=== PATIENT | female | born 2005 | race Hispanic/Latino ===

== ENCOUNTER 2024-04-19 07:55 | Inpatient (IN) | payer OTHER, SELFPAY ==
[2024-04-16 18:23] VITALS: BP 130/88
--- NOTE | 2024-04-16 18:23 | ED.GENMED ---
History of Present Illness
General
Chief Complaint: Crisis Evaluation
Source: patient
Exam Limitations: none
Time Seen by Provider: 04/16/24 18:09
Nursing documentation reviewed up to this point in time: agreed with except (Denies neck pain)
History of Present Illness
History of Present Illness:
18-year-old female via EMS suicide attempt took some dxve-baz-pxkmrok Motrin a few hours ago which she was changed around her neck to try to hang herself, EMS was called denies any drugs or alcohol, has had brain surgery previously due to an ear
infection, currently unemployed, denies never been hospitalized before for mental illness denies any neck pain to me,
Update patient tells me she took Motrin also tells me she is not exactly sure what she took around 5:00 9 pills
Past History
Past History
ED Past Surgical History: Brain
Social History
Tobacco: Non-smoker
Alcohol: Occasional
Drug: None
Personal: Single
Living: with family
Employment: Not employed
Phy Exam
Physical Exam
Physical Exam:
Physical Exam
General: no apparent distress, not acutely ill
Neck: No stridor no trismus no crepitance no ligature
Heart: s1/s2 regular rate and rhythm, no murmur. equal radial pulses.
Lungs: no acute respiratory distress. clear bilaterally
Neuro: alert and oriented. no focal neurological deficits
Skin: no rash
Psychiatric: Cooperative not hallucinating
Extremities: no edema.
Course
Orders/Labs/Results
Orders:
Orders
04/16/24 18:14
Crisis Consult Urgent
Reason for Consult: SI
Test Result ONCE
04/16/24 18:32
1:1 Observation - Suicide/ Violent Behavior As Directed
Comment: SI
04/16/24 18:51
Acetaminophen Urgent
Alcohol Urgent
Complete Blood Count/With Diff Urgent
Comprehensive Metabolic Panel Urgent
HCG, Serum Qualitative Screen Urgent
Salicylate Urgent
04/16/24 18:52
Urine Drug Abuse Screen Urgent
Date Specimen was Collected: 04/16/24
Time Specimen was Collected: 18:51
04/16/24 19:33
Acetylcysteine [Acetadote] 6,100 mg 0.45% Sodium Chloride 1000 ml [0.45%NaCl] 1,000 ml IV ONCE
04/16/24 19:38
Electrocardiogram (*1) Urgent
Reason for Study: QTc Monitoring
EKG- Treatment ONCE
04/16/24 20:07
Acetylcysteine [Acetadote] 9,160 mg 0.45% Sodium Chloride 250 ml [0.45%NaCl] 200 ml IV NOW
04/16/24 20:09
Admit/Transfer Patient As Directed
Co-Sign Provider:
Level of Care: Observation services
Assign to:: Telemetry
Physician / Group: alonso
Diagnosis: tylenol overdose
Reason for Telemetry: Arrhythmia
Date to Stop Telemetry: 04/19/24
Time to Stop Telemetry: 11:00
PRN Pain Medication Management As Directed
May give lesser potent ordered pain med per pt: Yes
preference::
Protocol:: Medication orders for pain may be administered in a
manner that supports deferring to patient preference
when the pt is:
- Requesting an ordered lesser potent pain medication.
Least to most potent pain medications are defined
as: acetaminophen < NSAID < tramadol < opioids
(morphine, oxycodone, hydromorphone).
- Requesting a lesser dose of the same medication IF
ORDERED.
- Requesting a less intrusive route of administration
if both routes are prescribed by the provider (PO <
IV).
04/16/24 20:10
Code Status As Directed
Resuscitation Status: Full Code
04/16/24 20:21
Prothrombin Time Urgent
04/16/24 21:00
Acetylcysteine [Acetadote] 3,060 mg 0.45% Sodium Chloride 500 ml [0.45%NaCl] 500 ml IV ONCE
04/19/24 11:00
DC Protocol for Telemetry ONCE
Abnormal Lab Results
04/16/24 04/16/24
18:51 18:52
WBC 4.5 L 10^3/uL
(4.8-10.8)
MPV 11.0 H fL
(7.4-10.4)
Monocytes % 9.4 H %
(1.7-9.3)
Creatinine 0.5 L mg/dL
(0.6-1.0)
AST 43 H U/L
(14-36)
Salicylates < 1.0 L mg/dl
(2.0-20.0)
Acetaminophen 167 H* ug/ml
(10-30)
U Marijuana (THC) Screen Positive H
(Negative)
04/16/24 18:51
04/16/24 18:51
Vital Signs
Initial and Last Documented VS:
Initial Vital Signs
Pulse Resp BP Pulse Ox
90 18 130/88 98
04/16/24 18:23 04/16/24 18:23 04/16/24 18:23 04/16/24 18:23
Last Documented Vital Signs
Pulse Resp BP Pulse Ox
75 19 130/88 99
04/16/24 20:45 04/16/24 20:45 04/16/24 18:23 04/16/24 20:45
MDM/Problems Addressed
Differential Diagnosis Includes:
Suicide attempt suicidal gesture, attempted hanging
MDM/Problems Addressed:
Medicine overdose, attempted hanging appears to be low risk self strangulation with shoelaces, no ligature, no crepitance no pain no trismus
*Pulse Oximetry
Patient hypoxic: no
*Critical Care Note
Total Time (30-74mins, 75-104mins- exclusive of procedures): 30
Update Note
Update Note:
Update crisis think she is okay for outpatient follow-up I did get her Tylenol level, reviewed with patient around 5 or 530 if she took 9 Motrin she says although she is not sure she just did not even look at the pills, at this point I believe the
risk and benefits support starting N-acetylcysteine as patient is unreliable as an elevated level
ED Attending Note
-
Portions of this chart may have been created with voice recognition software.� Occasional wrong word or��sound alike� substitutions may have occurred due to the inherent limitations of voice recognition software.
Discharge Plan
Departure
Patient Disposition: Admit
Date of Disposition: 04/16/24
Time of Disposition: 19:50
Admit to: Telemetry
Presentation/result/management discussed w/ accepting MD/DO: Hospitalist
Patient with high blood pressure during this ER visit?: No
Condition: Fair
Covid-19: Not Applicable
Discharge Problem:
Acetaminophen overdose
Interventions
Interventions:
*Risk Screen - Suicide Last Done: 04/16/24 18:23
*General Assessment Last Done: 04/16/24 18:23
*Neglect/Abuse Screening Last Done: 04/16/24 18:23
*ED COVID-19 Vaccine History Last Done: 04/16/24 18:34
ED-Psychological Assessment Last Done: 04/16/24 18:37
Discharge Date and Time
Print Language: ZIMBABWEAN
[2024-04-16 18:34] VITALS: BMI 21.1
[2024-04-16 19:02] LABS: % Eosinophils 0.2 % (0-6); % Immature Granulocytes 0.2 % (0-0.5); % Lymphocytes 34.1 % (20.5-51.1); % Monocytes 9.4 % (1.7-9.3); % Neutrophils 56.1 % (42.2-75.2); Absolute Lymphocytes 1.5 10^3/uL (1.2-3.4); Absolute Monocytes 0.4 10^3/uL (0.1-0.6); Absolute Neutrophils 2.5 10^3/uL (1.4-6.5); Mean Corp Hgb Conc. 34.2 g/dL (33.0-37.0); Mean Corpuscular Hgb 28.9 pg (27.0-31.0); Mean Corpuscular Volume 84.4 fL (81.0-99.0); Nucleated Red Blood Cells % 0 %; Platelet Count 223 10^3/uL (130-400); Red Cell Dist. Width 12.6 % (11.5-14.5); White Blood Cell Count 4.5 10^3/uL (4.8-10.8)
[2024-04-16 19:18] LABS: HCG, Serum Qualitative Screen Negative
[2024-04-16 19:18] LABS: Amphetamines Negative (Negative); Barbiturates Negative (Negative); Benzodiazepines Negative (Negative); Buprenorphine Negative (Negative); Cocaine Negative (Negative); Marijuana Positive (Negative); Methadone Negative (Negative); Methamphetamines Negative (Negative); Opiates Negative (Negative); Phencyclidine Negative (Negative); Tricyclic Antidepressants Negative (Negative)
[2024-04-16 19:23] LABS: Alcohol None Detected
[2024-04-16 19:27] LABS: ALT (SGPT) 34 U/L (0-35); AST (SGOT) 43 U/L (14-36); Acetaminophen 167 ug/ml (10-30); Albumin 4.4 g/dl (3.5-5.0); Alkaline Phosphatase 91 U/L (38-126); Blood Urea Nitrogen 9 mg/dl (7-17); Calcium 9.7 mg/dl (8.4-10.2); Carbon Dioxide 25 mmol/L (22-30); Chloride 103 mmol/L (98-107); Estimated Creatinine Clearance > 125 ml/min; Glucose 83 mg/dl (70-99); Potassium 4.2 mmol/L (3.5-5.1); Salicylate < 1.0 mg/dl (2.0-20.0); Sodium 137 mmol/L (135-145); Total Bilirubin 0.8 mg/dl (0.2-1.3); Total Protein 7.8 g/dl (6.3-8.2); eGFR > 60.00
--- NOTE | 2024-04-16 20:12 | HPS.HSE ---
Family Physician
-
Family Physician:
Chief Complaint
-
suicide attempt
History of Present Illness
18-year-old female history of childhood ear infection with involvement of her brain status post surgery, presenting with suicide attempt. She took 9 tablets of a vrxj-mhr-ajsrsrb pain medicine to try and kill herself. She thinks that she took
ibuprofen but she is not sure if she took Tylenol or ibuprofen. She also tried to hang herself with a shoelace but denies any neck pain. She states that she has been stressed and depressed for the past year. She is not formally diagnosed with
psychiatric issues. Denies prior suicide attempt. Not currently suicidal.
She denies any abdominal pain, nausea vomiting or chest pain shortness of breath diarrhea.
She smokes cigarettes occasionally. She uses marijuana occasionally. She drinks alcohol occasionally. Denies any other drugs.
Medical History
Past Medical History
Past Medical History: Reports Other (childhood ear infection with involvement of her brain status post surgery)
Past Surgical History: Reports Other (brain surgery )
Social History
Tobacco: Smoker
Alcohol: Occasional
Drug: Marijuana
Family History
Family History: Not pertinent
Allergies / Home Medications
Allergies reflects when Allergies were last updated in [facility].
Home Medications with original date entered in [facility]
Allergy/Medication List:
Allergies
Allergy/AdvReac Type Severity Reaction Status Date / Time
No Known Allergies Allergy Unverified 04/16/24 18:22
Review of Systems
-
History Source: Patient
A 12 point ROS was completed and negative except as noted: Yes
Constitutional: Reports No Symptoms
EENT: Reports No Symptoms
Respiratory: Reports No Symptoms
Cardiac: Reports No Symptoms
Abdomen/GI: Reports No Symptoms
: Reports No Symptoms
Musculoskeletal: Reports No Symptoms
Skin: Reports No Symptoms
Neurological: Reports No Symptoms
Endocrine: Reports No Symptoms
Hematologic/Lymphatic: Reports No Symptoms
Psych: Reports No Symptoms
Physical Exam
Vital Signs
Vital Signs
Pulse Resp BP Pulse Ox
90 18 130/88 98
04/16/24 18:23 04/16/24 18:23 04/16/24 18:23 04/16/24 18:35
Physical Exam
General: Well Developed, Well Nourished and No Apparent Distress
HEENT: NormoCephalic, Moist mucous membranes and Atraumatic
Respiratory: Clear
Cardiac: S1/S2 and Regular Rhythm; No Murmur or Rub
GI: Soft, Non Tender, Non Distended and Normal Bowel Sounds; No Organomegaly
Rectal: Deferred by Provider
Musculoskeletal: No Clubbing, No Cyanosis and No Edema
Skin: No Rash
Neuro: Nonfocal/grossly intact
Laboratory Results
-
04/16/24 18:51
04/16/24 18:51
Laboratory Results
Total Bilirubin 0.8 mg/dl (0.2-1.3) 04/16/24 18:51
AST 43 U/L (14-36) H 04/16/24 18:51
ALT 34 U/L (0-35) 04/16/24 18:51
Alkaline Phosphatase 91 U/L (38-126) 04/16/24 18:51
Data Reviewed
-
Lab Data: Labs Reviewed by me
Old Records: Reviewed
Impression/Plan
-
IMPRESSION:
PLAN:
# Suicide attempt secondary to Tylenol overdose
-Acetaminophen level 167
-Salicylates negative
-UDS positive for marijuana,
-PT/INR pending
-Check EKG
-NAC protocol
-Recheck Tylenol level and CMP, INR in the morning
-One-to-one sitter
-Psychiatry/crisis consult
Nicotine use
Marijuana user
History of childhood ear infection with involvement of her brain status post surgery
Full code
DVT prophylaxis�SCDs
Regular diet
[2024-04-16 20:42] LABS: INR 0.93; PT 12.8 Sec (11.4-14.6)
[2024-04-16] MEDS: ACETADOTE 245.8 MG IV (20:49)
[2024-04-16 21:00] VITALS: BP 124/80
[2024-04-16 22:00] VITALS: BP 138/79
[2024-04-16] MEDS: ZOFRAN 4 MG IV ×2 (22:10→23:40)
[2024-04-16] MEDS: ACETADOTE 515.3 MG IV (22:11)
[2024-04-16 23:00] VITALS: BP 139/86
[2024-04-16 23:40] VITALS: BP 130/79; BMI 19.8
[2024-04-17] MEDS: ACETADOTE 1030.5 MG IV (02:19)
[2024-04-17 03:06] VITALS: BP 131/76
[2024-04-17 06:06] LABS: INR 1.14; PT 14.9 Sec (11.4-14.6)
[2024-04-17 06:08] LABS: % Basophils 0.2 % (0-2); % Lymphocytes 29.9 % (20.5-51.1); % Monocytes 6.7 % (1.7-9.3); % Neutrophils 63.2 % (42.2-75.2); Absolute Lymphocytes 1.2 10^3/uL (1.2-3.4); Absolute Monocytes 0.3 10^3/uL (0.1-0.6); Absolute Neutrophils 2.6 10^3/uL (1.4-6.5); Hematocrit 35.8 % (37.0-47.0); Hemoglobin 12.5 g/dL (12.0-16.0); Mean Corp Hgb Conc. 34.9 g/dL (33.0-37.0); Mean Corpuscular Hgb 29.3 pg (27.0-31.0); Mean Corpuscular Volume 83.8 fL (81.0-99.0); Mean Platelet Volume 11.3 fL (7.4-10.4); Nucleated Red Blood Cells % 0 %; Platelet Count 199 10^3/uL (130-400); Red Blood Cell Count 4.27 10^6/uL (4.20-5.40); Red Cell Dist. Width 12.4 % (11.5-14.5); White Blood Cell Count 4.2 10^3/uL (4.8-10.8)
[2024-04-17 06:23] LABS: ALT (SGPT) 31 U/L (0-35); AST (SGOT) 34 U/L (14-36); Albumin 4.3 g/dl (3.5-5.0); Alkaline Phosphatase 56 U/L (38-126); Blood Urea Nitrogen 7 mg/dl (7-17); Calcium 9.1 mg/dl (8.4-10.2); Carbon Dioxide 22 mmol/L (22-30); Chloride 102 mmol/L (98-107); Estimated Creatinine Clearance > 125 ml/min; Glucose 97 mg/dl (70-99); Potassium 4.2 mmol/L (3.5-5.1); Sodium 136 mmol/L (135-145); Total Bilirubin 0.9 mg/dl (0.2-1.3); Total Protein 7.1 g/dl (6.3-8.2); eGFR > 60.00
[2024-04-17 07:23] VITALS: BP 129/74
[2024-04-17 11:24] VITALS: BP 122/74
--- NOTE | 2024-04-17 13:21 | CS.PSYCHR ---
Consult Summary - Psychiatry
-
Pt is a 18 yo female, brought in by EMS after she called a Crisis Hotline while overdosing on OTC pain reliever. Pt states she was not sure if the med was Ibuprofen, took one pill at a time at home, while her parents were out for dinner. Pt had an
argument with a friend and was 'mad and upset.' Pt reportedly had a shoelace around her neck for up to 10 min, denies hanging attempt. Pt denies any SI leading up to taking the OD. She states she had SI at the time, but did not expect to .
Upon eval in the ED, Tylenol level elevated at 167. Pt does not seem to be aware of the potential toxicity of Tylenol. UDS + MJ, pt noted using occasionally. Pt denies any SI today, states she feels okay in mood. Pt states her mother is not
aware of the situation; pt does not want to tell her. Pt's father is aware she is in the hospital, but pt states family does not know the reason for admission. Pt states she felt depressed with crying spells in Dec/Jan, but has been coping better
since then.
Psych Hx: denies any prior treatment; denies any hx of OD
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
MSE: alert, oriented, calm, cooperative. Affect stable, somewhat detached. Mood okay, denies significant depression. Denies SI. Speech/thought coherent/clear. No signs of psychosis. Insight limited to fair
Imp: Unspecified depression, impulsive OD gesture, denying SI now
Rec: agree with Crisis Assessment recommendation for referral to [facility], when medically cleared
Will follow
--- NOTE | 2024-04-17 15:37 | W.PN.HOSP.TC ---
Today's Communication/Plan
-
18-year-old woman presents with suicide attempt. She took 9 tablets of a dyjc-aol-trdyzcl pain medicine to try and kill herself. She thinks that she took ibuprofen but she is not sure if she took Tylenol or ibuprofen. She also tried to hang
herself with a shoelace but denies any neck pain. She states that she has been stressed and depressed for the past year. She is not formally diagnosed with psychiatric issues. Denies prior suicide attempt. Not currently suicidal.
1. Post suicide attempt with possible tylenol. There can be a lag between ingestion and liver injury.
Check LFTs. renal function tomorrow.
If not showing signs of arm, she is likely OK.
Continue IVF.
2. Suicidality
Please rfer to psychiatry note. She will need inpatient placement
Full code
VCD for DVTp
Assessment / Plan
Assessment / Plan
Anticipated Discharge: 24 - 48 hours
Subjective/Interval History
-
Date of Service: April 17, 2024
Feels well. No complaints. No desire to hurt self.
Objective Data
-
Labs:
Laboratory Results
04/17/24
04:26
WBC 4.2 L
Hgb 12.5
Hct 35.8 L
Plt Count 199
PT 14.9 H
INR 1.14
Sodium 136
Potassium 4.2
Chloride 102
Carbon Dioxide 22
BUN 7
Creatinine 0.5 L
Glucose 97
Calcium 9.1
Total Bilirubin 0.9
AST 34
ALT 31
Alkaline Phosphatase 56
Vital Signs:
Vital Signs
Temp Pulse Resp BP Pulse Ox
98.3 F 82 16 122/74 98
04/17/24 11:24 04/17/24 11:24 04/17/24 11:24 04/17/24 11:24 04/17/24 11:24
I&O
04/16/24 04/17/24 04/18/24
06:59 06:59 06:59
Intake Total 480 / 480
Balance 480 / 480
Review of Systems
-
History Source: Patient
All other systems: Reviewed and negative
Physical Exam
-
General: Well Developed, Well Nourished, No Apparent Distress and Comfortable
HEENT: Normocephalic, Atraumatic, Nose Appears Normal and Ears Appear Normal
Respiratory: Clear to Auscultation
Cardiac: Regular Rhythm and S1/S2
GI: Soft, Nontender and Nondistended
Musculoskeletal: No Clubbing, No Cyanosis and No Edema
Skin: Warm and Dry; Negative Rash or Ulcers
Neuro: Awake, Alert, Oriented and AO x 3
Psych: Calm
Data Reviewed
-
Labs: Labs Reviewed by me
[2024-04-17 16:33] VITALS: BP 112/72
[2024-04-17 19:20] VITALS: BP 122/84
[2024-04-17 23:25] VITALS: BP 121/74
[2024-04-18 03:10] VITALS: BP 119/67
[2024-04-18 07:35] VITALS: BP 102/69
[2024-04-18 08:32] LABS: Hematocrit 34.6 % (37.0-47.0); Mean Corp Hgb Conc. 34.7 g/dL (33.0-37.0); Mean Corpuscular Hgb 29.2 pg (27.0-31.0); Mean Corpuscular Volume 84.2 fL (81.0-99.0); Mean Platelet Volume 11.2 fL (7.4-10.4); Platelet Count 203 10^3/uL (130-400); Red Blood Cell Count 4.11 10^6/uL (4.20-5.40); Red Cell Dist. Width 12.9 % (11.5-14.5); White Blood Cell Count 4.9 10^3/uL (4.8-10.8)
[2024-04-18 09:02] LABS: ALT (SGPT) 38 U/L (0-35); AST (SGOT) 42 U/L (14-36); Acetaminophen < 10 ug/ml (10-30); Albumin 3.6 g/dl (3.5-5.0); Alkaline Phosphatase 73 U/L (38-126); Blood Urea Nitrogen 7 mg/dl (7-17); Calcium 8.9 mg/dl (8.4-10.2); Carbon Dioxide 26 mmol/L (22-30); Chloride 107 mmol/L (98-107); Estimated Creatinine Clearance > 125 ml/min; Glucose 81 mg/dl (70-99); Potassium 4.3 mmol/L (3.5-5.1); Sodium 139 mmol/L (135-145); Total Bilirubin 0.4 mg/dl (0.2-1.3); Total Protein 6.7 g/dl (6.3-8.2); eGFR > 60.00
--- NOTE | 2024-04-18 09:16 | CM ---
Addendum entered by Rachel Metcalf RN 04/18/24 14:32:
CM spoke with Tanesha in Crisis regarding PHP/IOP therapy. Per attending psychiatrist, [facility] has no openings for new clients. Tanesha suggested CM try [facility]. CM left voice message for call back ([phone]).
Original Note:
Reviewed the chart notes and spoke with the patient at the bedside. 1:[address] The patient resides with her parents in a two story home with no steps to enter. Per patient, no DME/VN/SNF. Patient reports no insurance coverage. The
patient reports her pharmacy of choice is [facility]. CM continues to be available to patient/family and is monitoring medical plan for needs at discharge.
Plan: Discharge plans will depend on recommendation of psychiatrist.
[2024-04-18 11:45] VITALS: BP 111/78
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
--- NOTE | 2024-04-18 13:13 | W.PN.HOSP.TC ---
Today's Communication/Plan
-
trend labs tomorrow
dc 1:1
M/S status (transfer away from [facility] post-op floor)
follow psych recs
Assessment / Plan
Assessment / Plan
Assessment:
Suicidal attempt, ingestion of Tylenol/Motrin
- Psych following, working on PHP options
- dc 1:1 per psych
Tylenol overdose
- s/p NAC x 1
- follow LFTs; slight rise today; will trend into tomorrow
- no signs of liver failure
Nicotine use
Marijuana use
- counseled on cessation
DVT ppx: SCDs
Code: Full
Anticipated Discharge: Within 24 hours
Subjective/Interval History
-
Date of Service: April 18, 2024
no complaints
Objective Data
-
Labs:
Laboratory Results
04/18/24
07:47
WBC 4.9
Hgb 12.0
Hct 34.6 L
Plt Count 203
Sodium 139
Potassium 4.3
Chloride 107
Carbon Dioxide 26
BUN 7
Creatinine 0.6
Glucose 81
Calcium 8.9
Total Bilirubin 0.4
AST 42 H
ALT 38 H
Alkaline Phosphatase 73
Vital Signs:
Vital Signs
Temp Pulse Resp BP Pulse Ox
98.5 F 72 16 111/78 98
04/18/24 11:45 04/18/24 11:45 04/18/24 11:45 04/18/24 11:45 04/18/24 11:45
I&O
04/17/24 04/18/24 04/19/24
06:59 06:59 06:59
Intake Total 480 / 480 1919
Balance 480 / 480 1919
Physical Exam
-
General: No Apparent Distress
HEENT: Normocephalic and Atraumatic
Respiratory: Negative Wheezes
Cardiac: Regular Rhythm and S1/S2
GI: Soft and Nontender
Genito-urinary: No Costovertebral Tender
Musculoskeletal: No Edema
Neuro: AO x 3
Hematologic / Lymphatic: No Lymphadenopathy
Psych: Calm
Data Reviewed
-
Total Time Spent with Patient (in minutes): 41
Labs: Labs Reviewed by me
[2024-04-18 15:27] VITALS: BP 118/78
[2024-04-18 19:45] VITALS: BP 118/71
[2024-04-18 23:15] VITALS: BP 121/72
[2024-04-19 03:25] VITALS: BP 119/82
[2024-04-19 05:47] LABS: Hematocrit 36.1 % (37.0-47.0); Hemoglobin 12.3 g/dL (12.0-16.0); Mean Corp Hgb Conc. 34.1 g/dL (33.0-37.0); Mean Corpuscular Hgb 29.2 pg (27.0-31.0); Mean Corpuscular Volume 85.7 fL (81.0-99.0); Platelet Count 205 10^3/uL (130-400); Red Blood Cell Count 4.21 10^6/uL (4.20-5.40); Red Cell Dist. Width 12.7 % (11.5-14.5); White Blood Cell Count 4.2 10^3/uL (4.8-10.8)
[2024-04-19 06:10] LABS: ALT (SGPT) 49 U/L (0-35); AST (SGOT) 44 U/L (14-36); Alkaline Phosphatase 72 U/L (38-126); Blood Urea Nitrogen 9 mg/dl (7-17); Calcium 9.4 mg/dl (8.4-10.2); Carbon Dioxide 27 mmol/L (22-30); Chloride 106 mmol/L (98-107); Estimated Creatinine Clearance > 125 ml/min; Glucose 89 mg/dl (70-99); Potassium 4.5 mmol/L (3.5-5.1); Sodium 139 mmol/L (135-145); Total Bilirubin 0.4 mg/dl (0.2-1.3); Total Protein 6.9 g/dl (6.3-8.2); eGFR > 60.00
[2024-04-19 07:45] VITALS: BP 108/63
--- NOTE | 2024-04-19 10:12 | W.PN.HOSP.TC ---
Today's Communication/Plan
-
dc home with OP [facility]
Assessment / Plan
Assessment / Plan
Assessment:
Suicidal attempt, ingestion of Tylenol/Motrin
- Psych following, working on arranging patient for f/u with [facility]
Tylenol overdose
- s/p NAC x 1
- follow LFTs stable
- no signs of liver failure
- stable for DC home
Nicotine use
Marijuana use
- counseled on cessation
DVT ppx: SCDs
Code: Full
More than 30 minutes spent in discharge including
Final examination of the patient
Summarizing hospital stay
Instructions for continuing care to all relevant caregivers
Preparation of discharge records, prescriptions, and referral forms
Total time spent (in minutes): 41
Anticipated Discharge: Today
Subjective/Interval History
-
Date of Service: April 19, 2024
no complaints
Objective Data
-
Labs:
Laboratory Results
04/19/24
05:29
WBC 4.2 L
Hgb 12.3
Hct 36.1 L
Plt Count 205
Sodium 139
Potassium 4.5
Chloride 106
Carbon Dioxide 27
BUN 9
Creatinine 0.5 L
Glucose 89
Calcium 9.4
Total Bilirubin 0.4
AST 44 H
ALT 49 H
Alkaline Phosphatase 72
Vital Signs:
Vital Signs
Temp Pulse Resp BP Pulse Ox
97.9 F 77 16 108/63 98
04/19/24 07:45 04/19/24 07:45 04/19/24 07:45 04/19/24 07:45 04/19/24 07:45
I&O
04/18/24 04/19/24 04/20/24
06:59 06:59 06:59
Intake Total 1919 1440 / 144
Balance 1919
Physical Exam
-
General: No Apparent Distress
HEENT: Normocephalic and Atraumatic
Respiratory: Negative Wheezes
Cardiac: Regular Rhythm and S1/S2
GI: Soft and Nontender
Musculoskeletal: No Edema
Neuro: AO x 3
Hematologic / Lymphatic: No Lymphadenopathy
Psych: Calm
Data Reviewed
-
Total Time Spent with Patient (in minutes): 41
Labs: Labs Reviewed by me
--- NOTE | 2024-04-19 10:22 | W.DS.TRANS ---
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
-
Discharge Instructions:
Discharge Diagnosis/Procedures Tylenol overdose, suicidal attempt
Diet Regular
Activity As tolerated
Bathing Restrictions None
Instructions:
Stand-Alone Forms:
Changes to Home Medications: No
Discharge Medications:
Home Medication Changes
Pending Results: No
Total time spent discharging patient (in min): 41
--- NOTE | 2024-04-19 10:40 | CM ---
Reviewed the chart notes. Per psychiatry, patient will do outpatient at [facility]. CM continues to be available to patient/family and is monitoring medical plan for needs at discharge.
Plan: Discharge to home today and follow with outpatient therapy at [facility] arranged by psychiatry.
[2024-04-19] MEDS: AFLURIA (36 mos+) 2024-2025 FORMULA 0.5 ML IM (11:04)
--- NOTE | 2024-04-19 11:05 | W.PN.UPDATE ---
Update Note
Progress Note Update
patient seen chart reviewed. discussed w community case manager and dr montejo. the patient is willing to do out patient therapy. to that end i have set up an intake with [facility] this am and they will be calling her once her phone charges. i did speak to the intake
coordinator at [facility] this am. my recommendation would be php but they are not accepting new patient right now so she could start in out patient get an eval w a psychiatrist and participate in the top program with twice weekly groups which she says
she is willing to do. also gave her the name of a pcp when she gets MA. it is my hope that she will be able to get a community case manager at [facility] who will help with getting ma and getting involved in ged program.rosalva islas has some hx of self injurious behaviors
in the past. she used to cut herself superficially and i she did have a few scratches on her wrist. this does not represent suicidality. she admits it is more likely when she is angry upset at something. at this point she is not experiencing any
self injurious thoughts. family visited yesterday and offered support. there are NO guns in the home. patient is not taking psychotropic meds at present. liver enzymes better but still a bit elevated however she is medically cleared. she has the
crisis phone number should she need help at any time.
[2024-04-19 11:34] VITALS: BP 130/69
[2024-04-19 14:45] VITALS: BP 110/76
--- NOTE | 2024-04-19 14:56 | PTCARENOTE ---
Pt unable to obtain transport home until 1800. OK per Dr. Wells to take a lyft home. CM updated.
--- NOTE | 2024-04-19 15:51 | PTCARENOTE ---
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
== END 2024-04-19 15:17 | disposition home or self-care (01) | DRG 918 ==
LOC: 2 SOUTH 07:55
PROVIDERS: Internal Medicine; ADMITTING PHYSICIAN Hospitalist; ATTENDING PHYSICIAN Internal Medicine; CONSULT PHYSICIAN Psychiatry & Neurology Psychiatry; EMERGENCY PHYSICIAN Emergency Medicine
PROC: 3E02340 Introduction of Influenza Vaccine into Muscle, Percutaneous Approach (ICD-10-PCS; 2024-04-19)
DX: T39.1X2A Poisoning by 4-Aminophenol derivatives, intentional self-harm, initial encounter (principal); T39.312A Poisoning by propionic acid derivatives, intentional self-harm, initial encounter; F32.A Depression, unspecified; F17.210 Nicotine dependence, cigarettes, uncomplicated; F12.90 Cannabis use, unspecified, uncomplicated; R45.87 Impulsiveness; Y92.009 Unspecified place in unspecified non-institutional (private) residence as the place of occurrence of the external cause; Z98.890 Other specified postprocedural states; Z23 Encounter for immunization; Z56.0 Unemployment, unspecified
CPT/HCPCS: 80053; 80143; 80179; 80306; 82077; 84703; 85025; 85027; 85610; 90686; 93005; 96374; 96375; 96376; 99291; G0008; J0132; J7030